=== PATIENT | female | born 1955 ===

== ENCOUNTER → 2019-09-16 | Outpatient (CLI) | payer OTHER ==
[~2019-09-16] MED LIST: CRUTCH4 USE; CYCL10 PO; ERGO50000 PO; HYDACE10 PO; HYDACE5 PO; HYDACE5325 PO; IBUP600 PO; IBUP800 PO; METPRE4DP PO; NAPR500 PO; OXYACE5T PO
== END | disposition home or self-care (01) ==
LOC: LAB 14:47 → LAB SHORT 14:47
PROVIDERS: Nurse Practitioner Family
DX: Z01.419 Encounter for gynecological examination (general) (routine) without abnormal findings (principal); Z12.4 Encounter for screening for malignant neoplasm of cervix; Z11.51 Encounter for screening for human papillomavirus (HPV)
CPT/HCPCS: G0145